=== PATIENT | female | born 1960 | race Caucasian/White ===

== ENCOUNTER 2020-06-29 11:05 | Outpatient (REF) | payer OTHER, SELFPAY ==
--- NOTE | 2020-06-29 11:09 | XR_ITS ---
EXAMINATION: XR SHOULDER, RIGHT CLINICAL INFORMATION: Strain right AC joint COMPARISON: None TECHNIQUE: AP external rotation, Grashey, scapular Y, and axillary views of the right shoulder. FINDINGS: Bone alignment is normal. No fracture or dislocation is seen. The glenohumeral joint is normal. There is mild arthritis at the acromioclavicular joint with small osteophytes. There are undersurface acromial osteophyte off the acromion. There is soft tissue calcification adjacent to the greater tuberosity. IMPRESSION: Mild arthritis at the acromioclavicular joint and acromial osteophyte. Soft tissue calcification adjacent to the greater tuberosity suggestive of calcific tendinitis or bursitis.
== END 2020-06-29 11:06 | disposition home or self-care (01) ==
LOC: HO.XRAY 11:05
PROVIDERS: PCP Internal Medicine; Visit Provider Internal Medicine
DX: S43.51XA Sprain of right acromioclavicular joint, initial encounter (principal); X58.XXXA Exposure to other specified factors, initial encounter; Y93.9 Activity, unspecified; Y92.9 Unspecified place or not applicable; Y99.9 Unspecified external cause status
CPT/HCPCS: 73030

== ENCOUNTER 2020-08-03 09:38 | Outpatient (REF) | payer BC, SELFPAY ==
[2020-08-03 11:22] LABS: Hematocrit 36.7 % (37-47); Hemoglobin 11.9 g/dl (12.0-16.0); Mean Corpuscular HGB Conc 32.4 g/dl (31.0-35.0); Mean Corpuscular Hemoglobin 32.9 pg (27.0-33.0); Mean Corpuscular Volume 101.4 fL (80-98); Mean Platelet Volume 9.9 fL (9.4-12.3); Platelet Count 210 X10*3/uL (160-400); Red Blood Count 3.62 X10*6/uL (4.20-5.50); Red Cell Distribution Width 13.6 % (11.0-16.0); White Blood Count 3.5 X10*3/uL (4.8-10.8)
[2020-08-03 11:53] LABS: Alanine Aminotransferase 51 U/L (0-31); Albumin Level 3.9 g/dL (3.5-5.0); Alkaline Phosphatase 79 U/L (39-117); Anion Gap 13 (12-20); Aspartate Amino Transferase 44 U/L (5-31); Bilirubin Direct 0.4 mg/dL (0.0-0.5); Bilirubin Total 0.9 mg/dL (0.0-1.0); Blood Urea Nitrogen 12 mg/dL (9-16); Carbon Dioxide 27 mmol/L (22-29); Chloride 105 mmol/L (96-108); Cholesterol 186 mg/dL; Estimated Glomerular Filt Rate > 60; Glucose Random 106 mg/dL (60-115); HDL Cholesterol 98 mg/dL; LDL Cholesterol Calculated 77 mg/dl; Sodium 141 mmol/L (135-145); Total Protein 6.3 g/dL (6.5-8.0); Triglycerides 58 mg/dL
[2020-08-03 11:59] LABS: Thyroid Stimulating Hormone 1.67 uIU/mL (0.32-4.0)
== END 2020-08-03 09:39 | disposition home or self-care (01) ==
LOC: HO.HMGCLDS 09:38
PROVIDERS: PCP Internal Medicine; Visit Provider Internal Medicine
DX: I10 Essential (primary) hypertension (principal)
CPT/HCPCS: 36415; 80048; 80061; 80076; 84443; 85027

== ENCOUNTER 2021-04-27 10:41 | Outpatient (REF) | payer BC, SELFPAY ==
--- NOTE | ~2021-04-27 | MM_ITS ---
EXAMINATION: MM SCREENING DIGITAL BREAST TOMOSYNTHESIS, BILATERAL CLINICAL INFORMATION: Screening. Asymptomatic. The lifetime risk of breast cancer based on the Tyrer-Cuzick Model is 6%. COMPARISON: Mammography: 11/21/2019, 05/23/2018, 04/17/2017 TECHNIQUE: Digital breast tomosynthesis is performed in both the craniocaudal and mediolateral oblique views along with computer-aided detection (CAD). Synthesized 2D images are generated from the tomosynthesis. FINDINGS: There are scattered areas of fibroglandular density (ACR BI-RADS breast composition Category b). There are no significant masses, abnormal calcifications, or other abnormalities. Breast tissue borders on heterogeneously dense. Parenchymal pattern is similar to prior exams. No developing density. No significant changes. MM/MM tomosynthesis screening BI IMPRESSION: No mammographic evidence of malignancy. ASSESSMENT: BI-RADS 1: Negative RECOMMENDATION: Routine annual mammography screening. This patient's information was entered into a reminder system with a target due date for their next mammogram.
== END 2021-04-27 10:42 | disposition home or self-care (01) ==
LOC: HO.MAMMO 10:41
PROVIDERS: PCP Hospitalist; Visit Provider Hospitalist
DX: Z12.31 Encounter for screening mammogram for malignant neoplasm of breast (principal)
CPT/HCPCS: 77063; 77067

== ENCOUNTER 2021-06-15 20:56 | Emergency (ER) | payer BC, SELFPAY ==
--- NOTE | ~2021-06-15 | CT_ITS ---
EXAMINATION: CT HEAD WITHOUT CONTRAST CT CERVICAL SPINE WITHOUT CONTRAST CLINICAL INFORMATION: Fall. COMPARISON: No similar priors. TECHNIQUE: Contiguous axial imaging was performed from the skull base to vertex without intravenous administration of contrast. Contiguous axial imaging was performed from the upper chest through the skull base without intravenous administration of contrast. Coronal and sagittal reformats were obtained at the acquisition workstation. This CT examination was performed using dose optimization techniques as appropriate, variously including the following: *Automated exposure control *Adjustment of mA and/or kV according to patient size (this includes techniques or standardized protocols for targeted exams where dose is matched to indication/reason for exam; i.e. extremities or head) *Use of iterative reconstruction technique DLP: 478 mGy-cm FINDINGS: Head: There is no evidence of acute intracranial hemorrhage or edematous territorial infarction. There is no abnormal attenuation within the brain parenchyma. Desir-white matter differentiation is preserved. The ventricles are normal in size and configuration. No evidence for obstructive hydrocephalus. No abnormal mass effect or midline shift. No extra-axial fluid collections. Subgaleal hematomas in the left posterior parietal skull. Mild mucoperiosteal thickening of the paranasal sinuses. The mastoids are clear. Cervical Spine: The atlantooccipital and atlantoaxial articulations remain well aligned. Straightening of the normal cervical lordosis. Otherwise, there is anatomic alignment of the vertebral bodies and posterior elements. No evidence of acute fracture or subluxation. There is multilevel cervical spondylosis with disc space narrowing, anterior osteophytes and uncovertebral hypertrophy, more prominent in the mid to lower cervical spine. There is no prevertebral soft tissue swelling. The thyroid gland and remaining cervical soft tissues are normal in appearance. The lung apices demonstrate no abnormalities. CT/CT cervical spine wo con IMPRESSION: Subgaleal hematomas in the left posterior parietal scalp without acute intracranial abnormalities. No acute cervical findings. Mild to moderate cervical spondylosis.
--- NOTE | ~2021-06-15 | XR_ITS ---
EXAMINATION: XR SACRUM AND COCCYX CLINICAL INFORMATION: Fall. COMPARISON: No similar priors. TECHNIQUE: 2 views of the sacrum and 2 views of the coccyx were obtained. FINDINGS: No acute fractures or malalignment. There is decreased bony demineralization with degenerative changes of the lumbar spine. Pelvic phleboliths. No unexpected radiopaque foreign bodies. XR/XR sacrum coccyx min 2V IMPRESSION: No definite fractures or malalignment. If clinical concern for fracture persists, consider further evaluation with a CT or MR.
--- NOTE | ~2021-06-15 | XR_ITS ---
EXAMINATION: X-RAY RIGHT HAND AND WRIST CLINICAL INFORMATION: Fall. COMPARISON: No similar priors. TECHNIQUE: 4 views of the right hand and wrist were obtained. FINDINGS: No evidence of acute fractures or malalignment. The carpal rows and the scapholunate interval are maintained. Mild joint space narrowing and subcortical sclerosis in the first carpometacarpal joint and triscaphe space. No erosive changes. No chondrocalcinosis. Mild soft tissue edema more prominent around the wrist without radiopaque foreign bodies. XR/XR hand wrist RT IMPRESSION: No acute fractures or malalignment. 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
[2021-06-15 21:57] VITALS: BP 111/87; PULSE 82; RESP 16; TEMP 36; O2SAT 100; BMI 29.8
[2021-06-16] MEDS: Acetaminophen 325 MG TABLET 650 MG PO (00:51)
[2021-06-16] MEDS: Cyclobenzaprine HCl 10 MG TABLET PO (01:01)
--- NOTE | 2021-06-16 01:14 | ED_ITS ---
HPI - Fall General Chief Complaint: Fall Stated Complaint: fall - head injury Time Seen by Provider: 06/15/21 23:39 Source: patient Mode of arrival: ambulatory Limitations: no limitations History of Present Illness HPI Narrative: Patient presents to ED for falling onto her head. Patient states she has bad myopathy and at baseline have severe off balance and unsteady gait. Patient states while walking up the stairs she loss balance and fell and hit the back of her head. Patient states she also landed on her buttock and right hand. Patient denies any loss of consciousness. Patient denies being on any blood thinners. MD complaint: fall Related Data Home Medications Medication Instructions Recorded Confirmed gabapentin 300 mg capsule 300 mg PO BID cap 06/29/20 08/25/20 meloxicam 15 mg tablet 15 mg PO DAILY PRN 06/29/20 08/25/20 omeprazole magnesium 20 mg 20 mg PO DAILY 07/06/20 08/25/20 tablet,delayed release ibuprofen 200 mg tablet (Advil) 200 mg PO Q6H PRN 08/24/20 08/25/20 Previous Rx's Medication Instructions Recorded carbamide peroxide 6.5 % ear drops 5 drp OTIC (EAR) LEFT DAILY 4 Days 08/05/20 (Ear Drops (carbamide peroxide)) #15 ml zolpidem 10 mg tablet 10 mg PO BEDTIME #30 tab 01/22/21 enalapril maleate 5 mg tablet 5 mg PO DAILY #60 tab 06/01/21 cyclobenzaprine 10 mg tablet 10 mg PO TID PRN #18 tab 06/16/21 naproxen 500 mg tablet 500 mg PO BID PRN #20 tab 06/16/21 Allergies Allergy/AdvReac Type Severity Reaction Status Date / Time meperidine [Demerol] Allergy Unknown Dizziness Verified 08/24/20 10:34 morphine [MORPHINE] Allergy Unknown ITCHING, Verified 08/24/20 10:34 itch Review of Systems Review of Systems: Yes all other systems are reviewed and are negative Constitutional: Constitutional: Reports as per HPI, Reports no additional constitutional complaints and Reports headache(s) Eyes: Eyes: Reports as per HPI and Reports no additional eye complaints ENT: Reports system reviewed and no additional complaints, except as documented, Reports as per HPI and Reports headache(s) Cardiovascular: Cardiovascular: Reports as per HPI and Reports no additional cardiovascular complaints Respiratory: Respiratory: Reports as per HPI and Reports no additional respiratory complaints Gastrointestinal: Gastrointestinal: Reports as per HPI and Reports no additional gastrointestinal complaints Genitourinary: Genitourinary: Reports no additional female genitourinary complaints and Reports as per HPI Musculoskeletal: Musculoskeletal: Reports no additional musculoskeletal complaints, Reports as per HPI, Reports back pain (Buttock pain) and Reports arthralgias (Right hand) Neurologic: Reports system reviewed and no additional complaints, except as documented, Reports as per HPI and Reports headache(s) Psychiatric: Psychiatric: Reports no additional psychiatric complaints and Reports as per HPI [facility] Past Medical History Medical History (Updated 06/16/21 @ 01:27 by CRIS Mckeon) Anxiety Benign essential HTN Diverticulitis GERD (gastroesophageal reflux disease) HTN (hypertension) Insomnia, unspecified Leukopenia Myopathy CARABALLO (nonalcoholic steatohepatitis) Obesity, unspecified Vitamin D deficiency Surgical History History of appendectomy History of cataract surgery History of cholecystectomy History of endometrial ablation History of eye surgery Family History Family History Father Obese CHF (congestive heart failure) Mother Stroke Diabetes CVD (cardiovascular disease) Family/Other Depression Diabetes Social History Social History (Updated 08/24/20 @ 10:37 by RADHA Muniz) Alcohol intake: current Alcohol intake frequency: holidays/special occasions only Advance Directives: No Advance Directives Information Provided: No Patient : No Physical Exam Vital Signs: Vital Signs: Last Vital Signs Temp 96.8 F 06/15/21 21:57 Pulse 82 06/15/21 21:57 Resp 16 06/15/21 21:57 BP 111/87 06/15/21 21:57 Pulse Ox 100 06/15/21 21:57 Body Mass Index 29.8 Const: General: cooperative, healthy appearing, comfortable, no acute distress, well developed, alert and awake Orientation/consciousness: oriented to time and patient oriented x3 HENMT: Head: Yes normal to inspection, Yes No palpable skull fracture present and Yes normocephalic Head images: 1. Hematoma on left parietal Eyes: General: appearance normal, both eyes and all related structures Neck: Neck: Yes normal visual inspection, Yes full ROM, Yes no lymphadenopathy, Yes no meningeal signs, Yes trachea midline, Yes supple and No tender Chest: Chest palpation & inspection: normal inspection of the chest and normal palpation of entire chest wall Resp: Effort & Inspection: normal respiratory effort and able to speak in complete sentences Auscultation: clear to auscultation bilaterally Cardio: Jugular venous distension: no JVD Heart sounds: S1 normal heart sound present and S2 normal heart sound present GI: Inspection: Yes normal to inspection and No abdominal wall ecchymosis Palpation (GI): Soft to palpation, not firm, nontender, no guarding and not rigid : General: No CVA tenderness and Yes no CVA tenderness Back/Spine/Pelvis: Back: no CVA tenderness, No CVA tenderness and back tenderness (Mild coccyx tenderness) Skin: General skin exam: no rashes or lesions noted and elasticity normal Neuro: General: oriented to time, patient oriented x3, no meningeal signs and CN's II-XI intact bilaterally Cranial nerves: Yes CN's II-XII intact bilaterally Extrem: General: Yes normal to inspection and Yes full ROM Hand/finger images: 1. Tenderness on palpation. Negative for swelling, ecchymosis, or deformity. Radial/pulses/neuro exam intact Psych: Appearance: grossly normal, well kempt and not disheveled Course Course Course Narrative: Patient sent for images. Reevaluation(s) Reevaluation #1: CT scan negative for any intracranial bleed, neck fracture, skull fracture, sacral coccyx fracture or hand fracture. Patient is safe for discharge. Patient discussed with Dr. Her including CT scan reading of subgleal hematoma which he states can be discharged Time: 01:23 MDM - Fall MDM Narrative Medical decision making narrative: Contusion. Head injury Discharge Plan Discharge Clinical Impression: Head injury, Contusion Patient Disposition: Home, Self-Care Instructions: Head Injury (ED), Contusion in Adults (ED) Additional Instructions: your images came back normal and negative for any life-threatening emergency. Return to the ED for any chest pain, shortness of breath, rectal bleeding, abdominal pain, vomiting blood, slurred speech, severe headache, paralysis of lower extremities, or any other concerning symptoms. Please follow up with PCP Prescriptions: New cyclobenzaprine 10 mg tablet 10 mg PO TID PRN (Reason: pain) Qty: 18 RF: 0 naproxen 500 mg tablet 500 mg PO BID PRN (Reason: pain) Qty: 20 RF: 0 No Action carbamide peroxide [Ear Drops (carbamide peroxide)] 6.5 % drops 5 drp otic (ear) left DAILY 4 Days Qty: 15 RF: 0 zolpidem 10 mg tablet 10 mg PO BEDTIME Qty: 30 RF: 1 enalapril maleate 5 mg tablet 5 mg PO DAILY Qty: 60 RF: 2 ibuprofen [Advil] 200 mg tablet 200 mg PO Q6H PRNRF: 0 omeprazole magnesium 20 mg tablet,delayed release (DR/EC) 20 mg PO DAILY RF: 0 gabapentin 300 mg capsule 300 mg PO BID RF: 0 meloxicam 15 mg tablet 15 mg PO DAILY PRNRF: 0 Print Language: Yoruba
== END 2021-06-16 01:36 | disposition home or self-care (01) ==
PROVIDERS: Emergency Provider Internal Medicine; PCP Hospitalist
DX: S00.93XA Contusion of unspecified part of head, initial encounter (principal); G44.309 Post-traumatic headache, unspecified, not intractable; R26.81 Unsteadiness on feet; M25.532 Pain in left wrist; M25.531 Pain in right wrist; M54.50 Low back pain, unspecified; W19.XXXA Unspecified fall, initial encounter; Y93.9 Activity, unspecified; Y92.9 Unspecified place or not applicable; Y99.9 Unspecified external cause status; Z79.899 Other long term (current) drug therapy
CPT/HCPCS: 70450; 72125; 72220; 73110; 73130; 99284

== ENCOUNTER 2022-04-28 10:53 | Outpatient (REF) | payer BC, SELFPAY ==
--- NOTE | ~2022-04-28 | MM_ITS ---
EXAMINATION: MM SCREENING DIGITAL BREAST TOMOSYNTHESIS, BILATERAL CLINICAL INFORMATION: Screening. Asymptomatic. The lifetime risk of breast cancer based on the Tyrer-Cuzick Model is 8%. COMPARISON: Mammography: 04/27/2021, 11/21/2019, 05/23/2018 TECHNIQUE: Digital breast tomosynthesis is performed in both the craniocaudal and mediolateral oblique views along with computer-aided detection (CAD). Synthesized 2D images are generated from the tomosynthesis. FINDINGS: There are scattered areas of fibroglandular density (ACR BI-RADS breast composition Category b). Breast tissue composition borders on heterogeneously dense. There is fibronodular parenchymal pattern similar to prior studies. No developing density or interval mass or architectural abnormality. No abnormal calcifications. The axilla and skin contours are unremarkable. MM/MM tomosynthesis screening BI IMPRESSION: No mammographic evidence of malignancy. ASSESSMENT: BI-RADS 1: Negative RECOMMENDATION: Routine annual mammography screening. This patient's information was entered into a reminder system with a target due date for their next mammogram.
== END 2022-04-28 10:54 | disposition home or self-care (01) ==
LOC: HO.MAMMO 10:53
PROVIDERS: PCP Internal Medicine; Visit Provider Nurse Practitioner Adult Health
DX: Z12.31 Encounter for screening mammogram for malignant neoplasm of breast (principal)
CPT/HCPCS: 77063; 77067

== ENCOUNTER 2022-06-08 13:04 | Outpatient (REF) | payer BC, SELFPAY ==
--- NOTE | ~2022-06-08 | MM_ITS ---
EXAMINATION: BONE DENSITOMETRY CLINICAL INDICATION: Asymptomatic menopausal state. COMPARISON: None (current study represents initial baseline exam). TECHNIQUE: Using a [employer] (formerly [employer]) DXA System (software version: 13.1) manufactured by [employer], dual-energy x-ray absorptiometry was performed of the lumbar spine and left hip. The images are of good technical quality. Summary results are attached. FINDINGS: AP SPINE L1-L4: BMD 1.048 g/cm2, Z-score -0.7, T-score -1.1, osteopenia. LEFT FEMUR, NECK: BMD 0.723 g/cm2, Z-score -1.6, T-score -2.3, osteopenia. LEFT FEMUR, TOTAL: BMD 0.748 g/cm2, Z-score -1.7, T-score -2.1, osteopenia. IDENTIFIED RISK FACTORS: Low calcium intake, history of fracture (adult), height loss, menopause. HISTORY OF FRACTURE: Wrist. Lower leg. MEDICATIONS: None listed. MM/XR DEXA axial skeleton IMPRESSION: 1. DIAGNOSIS: Osteopenia based on the lowest T-score value of -2.3 in the femoral neck applying World Health Organization criteria. 2. 10-YEAR FRACTURE RISK PREDICTION, FRAX: Major osteoporotic fracture (clinical spine, forearm, hip or shoulder) 17.0%. Hip fracture 2.8%. 3. Treatment Recommendations: NOF guidelines recommend consideration for treatment in postmenopausal women and men age 50 and older presenting with the following: -A hip or vertebral (clinical or morphometric) fracture. -T-score less than or equal to -2.5 at the femoral neck or spine after appropriate evaluation to exclude secondary causes. -Low bone mass at the hip or spine and a 10-year fracture probability by FRAX of greater than or equal to 3% for hip fracture or greater than or equal to 20% for major osteoporotic fracture based on the [place] adapted WHO algorithm. 4. Other Recommendations: All treatment decisions require clinical judgment and consideration of individual patient factors, including patient preferences, comorbidities, previous drug use, risk factors not captured in the FRAX model (e.g. frailty, falls, vitamin D deficiency, increased bone turnover, interval significant decline in bone density) and possible under or overestimation of fracture risk by FRAX. Additional medical evaluation for secondary cause of low bone mineral density may be appropriate. FUTURE SCAN RECOMMENDATION: People with diagnosed cases of osteoporosis or at high risk for fracture should have regular bone mineral density tests. For patients eligible for Medicare, routine testing is allowed once every 2 years. The testing frequency can be increased to one year for patients who have rapidly progressing disease, those who are receiving or discontinuing medical therapy to restore bone mass, or have additional risk factors.
== END 2022-06-08 13:05 | disposition home or self-care (01) ==
LOC: HO.MAMMO 13:04
PROVIDERS: Visit Provider Nurse Practitioner Adult Health
DX: Z13.820 Encounter for screening for osteoporosis (principal); Z78.0 Asymptomatic menopausal state
CPT/HCPCS: 77080

== ENCOUNTER 2023-12-22 07:22 | Day surgery (SDC) | payer BC, SELFPAY ==
--- NOTE | 2023-12-21 09:00 | P.CONAN_ITS ---
Documented by User: Beryl Ulrich NP 12/21/23 09:00 HPI - Anesthesia Eval Consult details Narrative: 63yo F for Colonoscopy PMFSH Active Problems Active Problems: All Active Problems Polymyalgia (Acute) Sprain of acromioclavicular ligament (Acute) Benign essential HTN (Acute) Anxiety (Acute) Past Medical History Medical History Myopathy HTN (hypertension) Diverticulitis Obesity, unspecified Benign essential HTN Anxiety Vitamin D deficiency GERD (gastroesophageal reflux disease) Insomnia, unspecified CARABALLO (nonalcoholic steatohepatitis) Leukopenia Family History Family History Father Obese CHF (congestive heart failure) Mother Stroke Diabetes CVD (cardiovascular disease) Family/Other Depression Diabetes Surgical History Surgical History History of eye surgery History of endometrial ablation History of cholecystectomy History of appendectomy History of cataract surgery Social History Social History Alcohol intake: current Alcohol intake frequency: holidays/special occasions only Patient Tobacco Use Status: Never used Tobacco Use of substances other than those prescribed or required for medical reasons: No Are you DNR?: No Advance Directives: No Advance Directives Information Provided: Yes Meds Allergies Allergy/AdvReac Type Severity Reaction Status Date / Time meperidine [Demerol] Allergy Unknown Dizziness Verified 12/22/23 08:28 morphine [MORPHINE] Allergy Unknown ITCHING, Verified 12/22/23 08:28 itch Home Medications ?Medication ?Instructions ?Recorded ?Confirmed ?Last Taken ?Type gabapentin 300 mg capsule 300 mg PO BID 06/29/20 08/25/20 Unknown History meloxicam 15 mg tablet 15 mg PO DAILY PRN 06/29/20 08/25/20 Unknown History omeprazole magnesium 20 mg 20 mg PO DAILY 07/06/20 12/22/23 12/22/23 History tablet,delayed release Assessment and Plan Assessment Anesthesia Assessment: Chart Reviewed Documented by User: Chaya Baptiste MD 12/22/23 09:27 [facility] Past Medical History Medical History Myopathy HTN (hypertension) Diverticulitis Obesity, unspecified Benign essential HTN Anxiety Vitamin D deficiency GERD (gastroesophageal reflux disease) Insomnia, unspecified CARABALLO (nonalcoholic steatohepatitis) Leukopenia Family History Family History Father Obese CHF (congestive heart failure) Mother Stroke Diabetes CVD (cardiovascular disease) Family/Other Depression Diabetes Family history of problems with anesthesia: No Surgical History Surgical History History of eye surgery History of endometrial ablation History of cholecystectomy History of appendectomy History of cataract surgery History of Problems with Anesthesia: No Social History Social History Alcohol intake: current Alcohol intake frequency: holidays/special occasions only Patient Tobacco Use Status: Never used Tobacco Use of substances other than those prescribed or required for medical reasons: No Are you DNR?: No Advance Directives: No Advance Directives Information Provided: Yes Meds Allergies Allergy/AdvReac Type Severity Reaction Status Date / Time meperidine [Demerol] Allergy Unknown Dizziness Verified 12/22/23 08:28 morphine [MORPHINE] Allergy Unknown ITCHING, Verified 12/22/23 08:28 itch Home Medications ?Medication ?Instructions ?Recorded ?Confirmed ?Last Taken ?Type gabapentin 300 mg capsule 300 mg PO BID 06/29/20 08/25/20 Unknown History meloxicam 15 mg tablet 15 mg PO DAILY PRN 06/29/20 08/25/20 Unknown History omeprazole magnesium 20 mg 20 mg PO DAILY 07/06/20 12/22/23 12/22/23 History tablet,delayed release Exam Height,Weight and Vital Signs: Height 5 ft 6 in Weight 89.358 kg Vital Signs Temp Pulse Resp BP Pulse Ox O2 Del Method 12/22/23 08:25 97.3 F 75 16 131/66 98 Room Air Airway Mallampati Class: II TM Dist: >3cm Neck ROM: Full Loose/Missing/Broken Teeth: Yes (Missing teeth bottom right and left. Denies broken or loose teeth) Heart: RRR Lungs: CTAB Assessment and Plan Assessment Anesthesia Assessment: Anesthesia Plan Discussed and Chart Reviewed Final Anesthetic Review Family History of Problems with Anesthesia: No History of Problems with Anesthesia: No NPO: Yes ASA Class: III Final Preanesthetic Review: No Changes in Pt Med Stat, Meds/Allgs Chart Reviewed, Consent Obtained/Reviewed and Anes Risks/Benef Reviewed Patient Risk: Intermediate Procedure Risk: Low Assessment/Block/Sedation in SS: Assess/Block/Sedation-SS Anesthetic Plan Anesthetic Plan: MAC: Disposition: Standard PACU
[2023-12-22 08:04] VITALS: BMI 31.8
[2023-12-22 08:25] VITALS: BP 131/66; PULSE 75; RESP 16; TEMP 36.3; O2SAT 98
[2023-12-22] MEDS: Lactated Ringers 1,000 ML 100 ML IVCONT (08:29)
[2023-12-22 09:53] VITALS: BP 103/60; PULSE 66; RESP 16; TEMP 36.6; O2SAT 98
--- NOTE | 2023-12-22 09:54 | PM.OP ---
Brief Operative Note Date of Service: 12/22/23 Surgeon: Dillan Rivas MD Was an [employer] used for this Procedure?: No Estimated blood loss (mL): 0 Pathology: none sent Condition: stable Disposition: PACU
[2023-12-22 10:08] VITALS: BP 134/73; PULSE 67; RESP 16; O2SAT 99
[2023-12-22 10:23] VITALS: BP 128/72; PULSE 69; RESP 16; TEMP 36.3; O2SAT 98
--- NOTE | 2023-12-22 10:35 | OP_ITS ---
DATE OF SERVICE: 12/22/2023 SURGEON: Dillan Rivas MD INDICATIONS: The patient presents for evaluation of colorectal cancer screening. Full consent has been obtained from her for this, including risks of bleeding and perforation. PREOPERATIVE DIAGNOSIS: Colorectal cancer screening. POSTOPERATIVE DIAGNOSIS: PROCEDURE PERFORMED: Colonoscopy to the cecum and terminal ileum. ESTIMATED BLOOD LOSS: COMPLICATIONS: ANESTHESIA: Monitored anesthesia care. ASSISTANTS: SPECIMENS: POSTOPERATIVE DIAGNOSES: Colorectal cancer screening, diverticulosis, and internal hemorrhoids. DESCRIPTION OF PROCEDURE: The patient was placed in the left lateral decubitus position. The digital rectal exam revealed no abnormalities. The Olympus video pediatric colonoscope was entered into the rectum and advanced easily to the cecum. Once in the cecum, I did identify normal-appearing cecal pouch with appendiceal orifice and a normal-appearing ileocecal valve. The terminal ileum was cannulated and appeared normal. The scope was withdrawn back in the colon. The entire cecum and ileocecal valve appeared normal. The scope was slowly withdrawn assessing all mucosal surfaces carefully. Preparation was excellent. I did not visualize any sign of polyps, colitis, or angiodysplasia. There was a mild amount of sigmoid diverticulosis. In the rectum, scope was retroflexed visualizing internal hemorrhoids, but no other pathology. The rectal mucosa appeared normal. The scope was straightened and withdrawn from the patient. She tolerated the procedure well and was returned to the recovery area in stable condition. IMPRESSION: 1. Diverticulosis. 2. Internal hemorrhoids. PLAN: Given today's negative exam and negative family history, I would recommend a followup coloscopy in 10 years for further screening. She will otherwise see me on a p.r.n. basis. Dillan Rivas MD RMSaira/KERI / [phone]
== END 2023-12-22 15:32 | disposition home or self-care (01) ==
PROVIDERS: PCP Internal Medicine; Visit Provider Internal Medicine
PROC: 0DJD8ZZ Inspection of Lower Intestinal Tract, Via Natural or Artificial Opening Endoscopic (ICD-10-PCS; CPT 45378; principal; 2023-12-22 08:30)
DX: Z12.11 Encounter for screening for malignant neoplasm of colon (principal); K57.30 Diverticulosis of large intestine without perforation or abscess without bleeding; K64.8 Other hemorrhoids; K58.0 Irritable bowel syndrome with diarrhea; Z87.19 Personal history of other diseases of the digestive system; I10 Essential (primary) hypertension; K21.9 Gastro-esophageal reflux disease without esophagitis; G72.9 Myopathy, unspecified; F41.9 Anxiety disorder, unspecified; Z79.899 Other long term (current) drug therapy; Z90.49 Acquired absence of other specified parts of digestive tract
CPT/HCPCS: 45378; J2704

== ENCOUNTER 2024-04-12 15:41 | Outpatient (REF) | payer BC, SELFPAY ==
--- NOTE | ~2024-04-12 | MM_ITS ---
EXAMINATION: MM SCREENING DIGITAL BREAST TOMOSYNTHESIS, BILATERAL CLINICAL INFORMATION: Screening. Asymptomatic. COMPARISON: Mammography: This study is compared with prior exams dating back to 2018. TECHNIQUE: Digital breast tomosynthesis is performed in both the craniocaudal and mediolateral oblique views along with computer-aided detection (CAD). Synthesized 2D images are generated from the tomosynthesis. FINDINGS: There are scattered areas of fibroglandular density (ACR BI-RADS breast composition Category b). There are no significant masses, abnormal calcifications, or other abnormalities. MM/MM tomosynthesis screening BI IMPRESSION: No mammographic evidence of malignancy. ASSESSMENT: BI-RADS BI-RADS 1 - Negative RECOMMENDATION: Routine annual mammography screening. 1 year F/U This examination should not preclude the clinical evaluation of a suspicious palpable abnormality. This patient's information was entered into a reminder system with a target due date for their next mammogram. Electronically signed by: Amee Crowder MD 05/08/2024 04:45 PM EDT
== END 2024-04-12 15:42 | disposition home or self-care (01) ==
LOC: HO.MAMMO 15:41
PROVIDERS: PCP Internal Medicine; Visit Provider Internal Medicine
DX: Z12.31 Encounter for screening mammogram for malignant neoplasm of breast (principal)
CPT/HCPCS: 77063; 77067

== ENCOUNTER → 2024-04-12 16:00 | Outpatient (BNV) | payer BC, SELFPAY | PROVIDERS: PCP Internal Medicine; Visit Provider Radiology Diagnostic Radiology | DX: Z12.31 Encounter for screening mammogram for malignant neoplasm of breast (principal) | CPT/HCPCS: 77063; 77067 ==

== ENCOUNTER → 2025-04-01 23:59 | Outpatient (BNV) | payer BC, SELFPAY | PROVIDERS: PCP Internal Medicine; Visit Provider Psychiatry & Neurology Neurology | DX: G62.89 Other specified polyneuropathies (principal) | CPT/HCPCS: 95886; 95911 ==